=== PATIENT | female | born 1955 | race Caucasian/White ===

== ENCOUNTER 2018-10-20 15:50 | Emergency (ER) | payer OTHER ==
[2018-10-20 17:05] LABS: ABS Basophils 0 10^3/ul (0-0.2); ABS Eosinophils 0 10^3/ul (0-0.6); ABS Lymphocytes 1.2 10^3/ul (1.0-4.8); ABS Monocytes 0.3 10^3/ul (0-0.8); ABS Neutrophils 5.2 10^3/ul (1.5-7.7); ABS Nucleated RBC 0 10^3/ul; Eosinophil % 0 %; Hematocrit 45 % (33-41); Hemoglobin 15.2 g/dL (12.0-16.0); Lymphocyte % 18.1 %; Mean Corpuscular HGB Conc 34 g/dL (31-36); Mean Corpuscular Hemoglobin 30 pg (27-31); Mean Corpuscular Volume 89 fL (80-97); Mean Platelet Volume 8.3 fL (7.4-10.4); Nucleated Red Blood Cells % 0; Platelet Count 270 10^3/uL (150-450); Red Blood Count 5.04 10^6 /uL (3.70-4.87); Red Cell Distribution Width 13 % (10.5-15); White Blood Count 6.7 10^3/uL (3.5-10.8)
[2018-10-20 17:16] LABS: Albumin 4.5 g/dL (3.2-5.2); Albumin/Globulin Ratio 1.5 (1-3); BUN/Creatinine Ratio 15.4 (8-20); C Reactive Protein 2.5 mg/L (<8.01); Calcium 9.8 mg/dL (8.6-10.3); EGFR Non-African American 91.8 (>60); Total Bilirubin 0.7 mg/dL (0.2-1.0); Total Protein 7.5 g/dL (6.4-8.9)
[2018-10-20] MEDS ORDERED: NS 0.9% 1000 ML** 1,000 ML IV ONE (17:57)
[2018-10-20] MEDS ORDERED: Morphine 4 MG/ML VIAL (1 ml) 4 MG/ML VIAL IV ONE (18:07)
[2018-10-20] MEDS ORDERED: Ondansetron INJ* 2 MG/ML VIAL IV ONE (18:07)
--- NOTE | 2018-10-20 18:11 | ED ---
GI/ HPI - HPI Summary HPI Summary: 63-year-old female presents with severe abdominal pain since last night. She has history of partial small bowel obstruction states that it feels same. She states she had a little bit nausea and did vomit. She also had a little bit diarrhea last night. She said normally occur at night and resolves by the morning. States the pain has persisted. She states she took some Zofran for the nausea and it is gone. She states that she has not had diarrhea or passed gas since 6 AM. 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 Never required surgery for her SBO. - History of Current Complaint Chief Complaint: EDAbdPain Time Seen by Provider: 10/20/18 17:57 Stated Complaint: SEVERE ABD PAIN PER PT Pain Intensity: 7 - Allergy/Home Medications Allergies/Adverse Reactions: Allergies Allergy/AdvReac Type Severity Reaction Status Date / Time Sulfa (Sulfonamide Allergy Rash Verified 10/20/18 15:52 Antibiotics) Home Medications: Home Medications Cholecalciferol TAB* [Vitamin D TAB*] 1,000 unit PO DAILY 10/20/18 [History Confirmed 10/20/18] Cyanocobalamin TAB* [Vitamin B12 TAB*] 500 mcg PO DAILY 10/20/18 [History Confirmed 10/20/18] Ondansetron ODT TAB* [Zofran 4 MG Odt TAB*] 4 mg PO Q6H PRN 10/20/18 [History Confirmed 10/20/18] PMH/Surg Hx/FS Hx/Imm Hx Endocrine/Hematology History: Denies: Hx Anticoagulant Therapy Cardiovascular History: Denies: Hx Myocardial Infarction - Cancer History Hx Chemotherapy: No Hx Radiation Therapy: No - Surgical History Surgery Procedure, Year, and Place: hysterectomy Infectious Disease History: No Infectious Disease History: Denies: Traveled Outside the [place] in Last 30 Days - Family History Known Family History: Positive: Non-Contributory - Social History Substance Use Type: Reports: None Review of Systems Negative: Fever Negative: Chest Pain Negative: Shortness Of Breath Positive: Abdominal Pain, Vomiting, Diarrhea, Nausea All Other Systems Reviewed And Are Negative: Yes Physical Exam Triage Information Reviewed: Yes Vital Signs On Initial Exam: Initial Vitals Temp Pulse Resp BP Pulse Ox 98.4 F 91 14 147/99 98 10/20/18 15:52 10/20/18 15:52 10/20/18 15:52 10/20/18 15:52 10/20/18 15:52 Vital Signs Reviewed: Yes Appearance: Positive: Well-Appearing Skin: Positive: Warm, Dry Head/Face: Positive: Normal Head/Face Inspection Eyes: Positive: Normal, Conjunctiva Clear ENT: Positive: Pharynx normal Respiratory/Lung Sounds: Positive: Clear to Auscultation, Breath Sounds Present Cardiovascular: Positive: Normal, RRR Abdomen Description: Positive: Soft, Other: - tenderness in RUQ Bowel Sounds: Positive: Present Musculoskeletal: Positive: Normal Neurological: Positive: Normal Psychiatric: Positive: Normal Diagnostics - Vital Signs Vital Signs Temp Pulse Resp BP Pulse Ox 10/20/18 15:52 98.4 F 91 14 147/99 98 - Laboratory Lab Results: Lab Results 10/20/18 10/20/18 10/20/18 Range/Units 16:52 16:52 16:52 WBC 6.7 (3.5-10.8) 10^3/uL RBC 5.04 H (3.70-4.87) 10^6 /uL Hgb 15.2 (12.0-16.0) g/dL Hct 45 H (33-41) % MCV 89 (80-97) fL MCH 30 (27-31) pg MCHC 34 (31-36) g/dL RDW 13 (10.5-15) % Plt Count 270 (150-450) 10^3/uL MPV 8.3 (7.4-10.4) fL Neut % (Auto) 76.8 % Lymph % (Auto) 18.1 % Freestone % (Auto) 4.5 % Eos % (Auto) 0 % Baso % (Auto) 0.6 % Absolute Neuts (auto) 5.2 (1.5-7.7) 10^3/ul Absolute Lymphs (auto) 1.2 (1.0-4.8) 10^3/ul Absolute Monos (auto) 0.3 (0-0.8) 10^3/ul Absolute Eos (auto) 0 (0-0.6) 10^3/ul Absolute Basos (auto) 0 (0-0.2) 10^3/ul Absolute Nucleated RBC 0 10^3/ul Nucleated RBC % 0 Sodium 135 (135-145) mmol/L Potassium 4.0 (3.5-5.0) mmol/L Chloride 101 (101-111) mmol/L Carbon Dioxide 27 (22-32) mmol/L Anion Gap 7 (2-11) mmol/L BUN 10 (6-24) mg/dL Creatinine 0.65 (0.51-0.95) mg/dL Est GFR ( Amer) 111.0 (>60) Est GFR (Non-Af Amer) 91.8 (>60) BUN/Creatinine Ratio 15.4 (8-20) Glucose 111 H (70-100) mg/dL Lactic Acid 0.6 (0.5-2.0) mmol/L Calcium 9.8 (8.6-10.3) mg/dL Total Bilirubin 0.70 (0.2-1.0) mg/dL AST 30 (13-39) U/L ALT 12 (7-52) U/L Alkaline Phosphatase 90 (34-104) U/L C-Reactive Protein 2.50 (<8.01) mg/L Total Protein 7.5 (6.4-8.9) g/dL Albumin 4.5 (3.2-5.2) g/dL Globulin 3.0 (2-4) g/dL Albumin/Globulin Ratio 1.5 (1-3) Lipase 34 (11.0-82.0) U/L Result Diagrams: 10/20/18 16:52 10/20/18 16:52 Lab Statement: Any lab studies that have been ordered have been reviewed, and results considered in the medical decision making process. - CT abd CT Interpretation Completed By: Radiologist Summary of CT Findings: IMPRESSION: 1. DISTENTION OF THE SMALL BOWEL WITHOUT DILATATION WITH TRANSITION TO DECOMPRESSED SMALL. BOWEL WITHIN THE RIGHT HEMIABDOMEN. THE DIFFERENTIAL INCLUDES EARLY OR. PARTIAL/INTERMITTENT SMALL BOWEL OBSTRUCTION. 2. 9.8 CM CYSTIC LESION OF THE RIGHT HEMIPELVIS, LIKELY OVARIAN IN ORIGIN. THE. DIFFERENTIAL INCLUDES CYSTIC OVARIAN NEOPLASM. RECOMMEND CONSIDERATION OF CORRELATION WITH. GYNECOLOGIC CONSULTATION IN THE NONACUTE SETTING. 3. DIVERTICULOSIS OF THE COLON. 4. RIGHT RENAL ANGIOMYOLIPOMA. Re-Evaluation - Re-Evaluation First Eval Re-Evaluation Time: 19:52 Change: Improved Comment: no pain, states feels like passing gas in room, wants to go home GIGU Course/Dx - Course Course Of Treatment: 63-year-old female presents with severe abdominal pain since last night. She has history of partial small bowel obstruction states that it feels same. She states she had a little bit nausea and did vomit. She also had a little bit diarrhea last night. She said normally occur at night and resolves by the morning. States the pain has persisted. She states she took some Zofran for the nausea and it is gone. She states that she has not had diarrhea or passed gas since 6 AM. 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 Never required surgery for her SBO. on exam tenderness RUQ. wbc normal. CT shows early or partial SBO. patient feeling better and is passing gas now so wants to be discharged. gave pain medication. told return if worsening pain or vomiting. told follow up flare maker about ovarian mass. patient understand and agrees with plan. - Diagnoses Differential Diagnoses - Female: Bowel Obstruction, Gastroenteritis (Viral), Urinary Tract Infection Provider Diagnoses: Partial small bowel obstruction Discharge - Sign-Out/Discharge Documenting (check all that apply): Patient Departure Patient Received Moderate/Deep Sedation with Procedure: No - Discharge Plan Condition: Stable Disposition: HOME Prescriptions: oxyCODONE/Acetamin 5/325 MG* [Percocet 5/325 TAB*] 1 tab PO Q6H PRN #8 tab MDD 4 PRN Reason: Pain Patient Education Materials: Bowel Obstruction (ED) Referrals: Valerie Sam MD [Primary Care Provider] - Additional Instructions: do not eat anything until symptoms resolve Take zofran every 6 hours as needed for nausea Take percocet every 6 hours as needed for pain Follow up with primary Return to ED if develop worsening pain, vomiting, fever, or any new or worsening symptoms - Billing Disposition and Condition Condition: STABLE Disposition: Home
[2018-10-20 20:28] VITALS: BP 124/73
== END 2018-10-20 20:20 | disposition home or self-care (01) ==
LOC: ED 15:50
DX: K56.600 Partial intestinal obstruction, unspecified as to cause (principal); K57.90 Diverticulosis of intestine, part unspecified, without perforation or abscess without bleeding; D17.71 Benign lipomatous neoplasm of kidney; Z88.2 Allergy status to sulfonamides
CPT/HCPCS: 36415; 74176; 80053; 83605; 83690; 85025; 86140; 96361; 96374; 96375; 99283; J2270; J2405

== ENCOUNTER 2020-08-09 10:17 | Observation (INO) ==
[2020-08-09 11:35] LABS: ABS Lymphocytes 1.1 10^3/ul (1.0-4.8); ABS Monocytes 0.4 10^3/ul (0-0.8); ABS Neutrophils 6.4 10^3/ul (1.5-7.7); Eosinophil % 0.1 %; Hematocrit 42 % (35-47); Hemoglobin 14.3 g/dL (12.0-16.0); Lymphocyte % 13.5 %; Mean Corpuscular HGB Conc 34 g/dL (31-36); Mean Corpuscular Hemoglobin 30 pg (27-31); Mean Corpuscular Volume 89 fL (80-97); Mean Platelet Volume 8.1 fL (7.4-10.4); Nucleated Red Blood Cells % 0.1; Platelet Count 241 10^3/uL (150-450); Red Blood Count 4.72 10^6 /uL (3.70-4.87); Red Cell Distribution Width 13 % (10-15); White Blood Count 7.9 10^3/uL (3.5-10.8)
[2020-08-09 11:43] LABS: Albumin 4.3 g/dL (3.2-5.2); Calcium 9.4 mg/dL (8.6-10.3); Potassium 3.9 mmol/L (3.5-5.0); Total Bilirubin 0.8 mg/dL (0.2-1.0)
[2020-08-09 11:49] LABS: Albumin/Globulin Ratio 1.5 (1-3); BUN/Creatinine Ratio 15.6 (8-20); EGFR African American 112.3 (>60); EGFR Non-African American 92.8 (>60); Globulin 2.9 g/dL (2-4); Total Protein 7.2 g/dL (6.4-8.9)
[2020-08-09] MEDS ORDERED: Iohexol 300 (CONTRAST) 10 ML SDV IV ONE (11:52)
[2020-08-09 11:55] LABS: INR 1.17 (0.82-1.09)
[2020-08-09] MEDS ORDERED: Ondansetron 4 mg VIAL 2 MG/ML 2 ml VIAL IV ONE (13:31)
[2020-08-09] MEDS ORDERED: fentaNYL 100 mcg/2 ml 50 MCG/ML VIAL IV SLOW PU ONE (13:56)
[2020-08-09] MEDS ORDERED: Ondansetron 4 mg VIAL 2 MG/ML 2 ml VIAL IV PRN (14:42)
[2020-08-09] MEDS ORDERED: Buffered Lidocaine 1% SYRIN 1 ml INTRADERM ONE (16:12)
[2020-08-09] MEDS ORDERED: HYDROmorphone 1 MG/1 ML SYRINGE IV PRN (16:13)
[2020-08-09] MEDS ORDERED: Naloxone 0.4 mg VIAL 0.4 mg/ml 1 ml VIAL IV PRN (16:13)
[2020-08-09] MEDS ORDERED: Prochlorperazine 5 mg/ml 2 ml VIAL (10 mg) IV PRN (16:13)
[2020-08-09] MEDS ORDERED: diPHENhydraMINE IV 50 MG/ML 1 ml VIAL (BENADRYL) IV PRN (16:13)
[2020-08-09] MEDS ORDERED: fentaNYL 250 mcg/5 ml 50 MCG/ML 5 ml VIAL (250 MCG) ONE (18:17)
[2020-08-09] MEDS ORDERED: Propofol 10 MG/ML 20 ML BTL ONE (18:17)
[2020-08-09] MEDS ORDERED: Succinylcholine 200 mg VIAL 20 mg/ml 10 ml VIAL (200 mg) ONE (18:17)
[2020-08-09] MEDS ORDERED: Midazolam 2 mg/2 ml VIAL 1 mg/ml 2 ml VIAL (2 mg) ONE (18:17)
[2020-08-09] MEDS ORDERED: Lidocaine 2% PF 5 ML VIAL ONE (18:17)
[2020-08-09] MEDS ORDERED: Rocuronium 50 mg VIAL 10 mg/ml 5 ml VIAL (50 mg) ONE (18:17)
[2020-08-09] MEDS ORDERED: ceFAZolin 2 GM PREMIX 2 GM/50 ML BAG ONE (18:32)
[2020-08-09] MEDS ORDERED: Bupivacaine 0.25% SDV 30 ML ONE (18:56)
[2020-08-09] MEDS ORDERED: Dexamethasone IV 4 MG/ML VIAL 1 ml VIAL ONE (19:12)
[2020-08-09] MEDS ORDERED: Acetaminophen IV 1 GM/100ML 100 ML ONE (19:12)
[2020-08-09] MEDS ORDERED: Ondansetron 4 mg VIAL 2 MG/ML 2 ml VIAL ONE (19:12)
[2020-08-10] MEDS: Lactated Ringers 1000 ml BAG 1,000 ML IV SCH ×2 (01:18→08:09)
[2020-08-10] MEDS ORDERED: oxyCODONE/Acetamin 5/325 mg TAB PO PRN (09:47)
[2020-08-10 16:09] VITALS: BP 121/54
[2020-08-12] MEDS ORDERED: Scopolamine PATCH Remove NOTE PATCH OFF ONE (16:13)
== END 2020-08-10 17:11 | disposition home or self-care (01) ==
LOC: ED 10:17 → SSU 10:17
PROVIDERS: ADMIT Surgery; ATTEND Surgery

== ENCOUNTER 2021-04-17 06:47 | Observation (INO) ==
[2021-04-17] MEDS ORDERED: Metoclopramide 5 MG/ML VIAL (10 mg) IV SLOW PU ONE (07:27)
[2021-04-17] MEDS ORDERED: Lactated Ringers 1000 ml BAG 1,000 ML IV ONE (07:27)
[2021-04-17] MEDS ORDERED: Morphine 4 MG/ML VIAL (1 ml) IV ONE ×2 (07:27→10:42)
[2021-04-17 08:22] LABS: Albumin 4.4 g/dL (3.2-5.2); Albumin/Globulin Ratio 1.3 (1-3); Calcium 9.6 mg/dL (8.6-10.3); Globulin 3.3 g/dL (2-4); Potassium 3.8 mmol/L (3.5-5.0); Total Bilirubin 0.5 mg/dL (0.2-1.0); Total Protein 7.7 g/dL (6.4-8.9)
[2021-04-17 08:42] LABS: ABS Lymphocytes 0.7 10^3/ul (1.0-4.8); ABS Monocytes 0.2 10^3/ul (0-0.8); ABS Neutrophils 7.5 10^3/ul (1.5-7.7); Hematocrit 44 % (35-47); Hemoglobin 14.8 g/dL (12.0-16.0); Lymphocyte % 8.7 %; Mean Corpuscular HGB Conc 34 g/dL (31-36); Mean Corpuscular Hemoglobin 30 pg (27-31); Mean Corpuscular Volume 89 fL (80-97); Mean Platelet Volume 8.5 fL (7.4-10.4); Platelet Count 272 10^3/uL (150-450); Red Blood Count 4.88 10^6 /uL (3.70-4.87); Red Cell Distribution Width 13 % (10-15); White Blood Count 8.5 10^3/uL (3.5-10.8)
[2021-04-17] MEDS ORDERED: Iohexol 300 (CONTRAST) 10 ML SDV IV ONE (09:25)
[2021-04-17 10:50] LABS: Rapid COVID-19 Molecular Undetected (Undetected)
[2021-04-17] MEDS ORDERED: Ondansetron 4 mg VIAL 2 MG/ML 2 ml VIAL IV ONE (10:57)
[2021-04-17] MEDS ORDERED: Ondansetron 4 mg VIAL 2 MG/ML 2 ml VIAL IV PRN ×2 (11:02→13:33)
[2021-04-17] MEDS: NS 0.9% 1000 ml BAG 1,000 ML IV SCH ×2 (11:23→23:43)
[2021-04-17] MEDS ORDERED: Morphine 2 MG/ML SYRINGE IV PRN (11:49)
[2021-04-17] MEDS ORDERED: Acetaminophen IV 1 GM/100ML 100 ML IV PRN (11:49)
[2021-04-17] MEDS: Heparin 5000 UNITS/ML 1 mL VIAL SUBCUT SCH ×2 (15:45→21:43)
[2021-04-17] MEDS ORDERED: Benzocaine/Menthol Pain Spray - BTL 78 GM TOPICAL PRN (21:02)
[2021-04-17] MEDS ORDERED: Phenol 1.4% Throat Spray 177 ml BTL TOPICAL PRN (21:33)
[2021-04-18] MEDS: Heparin 5000 UNITS/ML 1 mL VIAL SUBCUT SCH ×2 (05:59→16:19)
[2021-04-18 06:58] LABS: ABS Basophils 0.1 10^3/ul (0-0.2); ABS Lymphocytes 2.2 10^3/ul (1.0-4.8); ABS Monocytes 0.7 10^3/ul (0-0.8); ABS Neutrophils 5.5 10^3/ul (1.5-7.7); Eosinophil % 0.5 %; Hematocrit 38 % (35-47); Hemoglobin 12.9 g/dL (12.0-16.0); Lymphocyte % 25.5 %; Mean Corpuscular HGB Conc 34 g/dL (31-36); Mean Corpuscular Hemoglobin 31 pg (27-31); Mean Corpuscular Volume 90 fL (80-97); Mean Platelet Volume 8.3 fL (7.4-10.4); Platelet Count 230 10^3/uL (150-450); Red Blood Count 4.19 10^6 /uL (3.70-4.87); Red Cell Distribution Width 13 % (10-15); White Blood Count 8.4 10^3/uL (3.5-10.8)
[2021-04-18 07:20] LABS: Calcium 8.4 mg/dL (8.6-10.3); Potassium 3.5 mmol/L (3.5-5.0)
[2021-04-18] MEDS ORDERED: NS 0.9% 1000 ml BAG 1,000 ML IV SCH (07:44)
[2021-04-18] MEDS ORDERED: Pantoprazole VIAL 40 MG VIAL IV SCH (09:00)
[2021-04-18 12:38] VITALS: BP 114/73
== END 2021-04-18 16:33 | disposition home or self-care (01) ==
LOC: SSU 06:47 → ED 06:47
PROVIDERS: ADMIT Internal Medicine; ATTEND Internal Medicine